=== PATIENT | female | born 1980 | race African-American/Black ===

== ENCOUNTER 2017-06-04 19:46 | Emergency (ER) | payer OTHER ==
[2017-06-04 19:54] VITALS: BP 146/71; PULSE 91; TEMP 98.2; BMI 30.4
--- NOTE | 2017-06-04 21:22 | PDOC ---
History of Present Illness <Alexandra Cross - Last Filed: 06/04/17 21:19> - General History Source: Patient Exam Limitations: No Limitations - History of Present Illness Initial Comments: 06/04/17 21:26 Patient is a 37 year old female with a significant past medical history of Osteoarthritis (Bilateral knee), who presents to the ED with complaints of left sided flank pain that began yesterday afternoon while at work. Patient reports sitting at work she suddenly began to experience a lower left back pain that has shown no signs of subsiding. She reports taking Advil gel and sleeping for pain with minimal relief, but states she woke up at 4am this morning with increased pain. Patient states pain was chronic all day today but states it began to increase in intensity tonight at 7pm, prompting her to come into the ED for further evaluation. She reports her last menstrual cycle was May 13. Denies chest pain, Sob. Denies nausea, vomiting. Denies fevers, chills. Denies constipation, diarrhea, dysuria, hematuria. Denies any other symptoms. Allergies: None Social history: No smoking. No alcohol. No illicit drugs. Surgical history: C section. PMD: Dr. Cuevas <Jorge Luis Story - Last Filed: 06/04/17 21:27> - General Chief Complaint: Pain, Acute Stated Complaint: pain Time Seen by Provider: 06/04/17 21:10 Past History - Suicide/Smoking/Psychosocial Hx Smoking History: Unknown if ever smoked Have you smoked in the past 12 months: No Number of Cigarettes Smoked Daily: 10 Information on smoking cessation initiated: No Hx Alcohol Use: No Drug/Substance Use Hx: No <Alexandra Cross - Last Filed: 06/04/17 21:19> <Jorge Luis Story - Last Filed: 06/04/17 21:27> - Past Medical History Allergies/Adverse Reactions: Allergies Allergy/AdvReac Type Severity Reaction Status Date / Time No Known Allergies Allergy Verified 06/04/17 19:54 Review of Systems - Review of Systems Able to Perform ROS?: Yes Comments:: 06/04/17 21:26 GENERAL/CONSTITUTIONAL: No fever or chills. No weakness. HEAD, EYES, EARS, NOSE AND THROAT: No change in vision. No ear pain or discharge. No sore throat. CARDIOVASCULAR: No chest pain or shortness of breath. RESPIRATORY: No cough, wheezing, or hemoptysis. GASTROINTESTINAL: No nausea, vomiting, diarrhea or constipation. GENITOURINARY: No dysuria, frequency, or change in urination. MUSCULOSKELETAL: +Lower left flank pain. No joint or muscle swelling or pain. No neck SKIN: No rash NEUROLOGIC: No headache, vertigo, loss of consciousness, or change in strength/ sensation. ENDOCRINE: No increased thirst. No abnormal weight change. HEMATOLOGIC/LYMPHATIC: No anemia, easy bleeding, or history of blood clots. ALLERGIC/IMMUNOLOGIC: No hives or skin allergy. <Jorge Luis Story - Last Filed: 06/04/17 21:27> *Physical Exam - Vital Signs Last Vital Signs Temp Pulse Resp BP Pulse Ox 98.2 F 91 H 16 146/71 100 06/04/17 19:51 06/04/17 19:51 06/04/17 19:51 06/04/17 19:51 06/04/17 19:51 <Alexandra Cross - Last Filed: 06/04/17 21:19> - Vital Signs Last Vital Signs Temp Pulse Resp BP Pulse Ox 98.2 F 91 H 16 146/71 100 06/04/17 19:51 06/04/17 19:51 06/04/17 19:51 06/04/17 19:51 06/04/17 19:51 - Physical Exam Comments: 06/04/17 21:27 GENERAL: Awake, alert, and fully oriented, in no acute distress HEAD: No signs of trauma EYES: PERRLA, EOMI, sclera anicteric, conjunctiva clear ENT: Auricles normal inspection, hearing grossly normal, nares patent, oropharynx clear without exudates. Moist mucosa NECK: Normal ROM, supple, no lymphadenopathy, JVD, or masses LUNGS: Breath sounds equal, clear to auscultation bilaterally. No wheezes, and no crackles HEART: Regular rate and rhythm, normal S1 and S2, no murmurs, rubs or gallops ABDOMEN: Unable to elicit pain with palpation or percussion. Soft, nontender, normoactive bowel sounds. No guarding, no rebound. No masses EXTREMITIES: Normal range of motion, no edema. No clubbing or cyanosis. No cords, erythema, or tenderness NEUROLOGICAL: Cranial nerves II through XII grossly intact. Normal speech, normal gait SKIN: Warm, Dry, normal turgor, no rashes or lesions noted. <Jorge Luis Story - Last Filed: 06/04/17 21:27> *DC/Admit/Observation/Transfer <Alexandra Cross - Last Filed: 06/04/17 21:19> - Attestations Scribe Attestion: 06/04/17 21:27 Documentation prepared by Jorge Luis Story, acting as clinical specialist medical device for Alexandra Cross MD/DO. <Jorge Luis Story - Last Filed: 06/04/17 21:27> - Referrals Referrals: Navya Cuevas MD [Primary Care Provider] - - Patient Instructions - Post Discharge Activity
[2017-06-04 21:42] LABS: BASO % 1.1 % (0-2.0); EOS % 2.4 % (0-4.5); HEMATOCRIT 37.7 % (32.4-45.2); HEMOGLOBIN 12.5 GM/dL (10.7-15.3); LYMPH % 40.7 % (8-40); MCHC 33.3 g/dl (32.0-36.0); MEAN CELL VOLUME 90.3 fl (80-96); MEAN PLT VOLUME 7.7 fl (7.5-11.1); MONO % 10.3 % (3.8-10.2); NEUT % 45.5 % (42.8-82.8); PLATELET COUNT 261 K/MM3 (134-434); RBC 4.17 M/mm3 (3.60-5.2)
[2017-06-04 22:10] LABS: ALBUMIN 3.6 g/dl (3.4-5.0); ALK PHOS 80 U/L (45-117); ANION GAP 7 (8-16); BLOOD UREA NITROGEN 12 mg/dL (7-18); CALCIUM 8.4 mg/dL (8.5-10.1); CHLORIDE 108 mmol/L (98-107); CO2 27 mmol/L (21-32); CREATININE 0.7 mg/dL (0.55-1.02); GLUCOSE,RANDOM 102 mg/dL (74-106); POTASSIUM 3.7 mmol/L (3.5-5.1); SGOT/AST 14 U/L (15-37); SGPT/ALT 21 U/L (12-78); SODIUM 142 mmol/L (136-145); TOT PROT 7.3 g/dl (6.4-8.2)
[2017-06-04 22:12] LABS: BILIRUBIN,TOTAL < 0.1 mg/dL (0.2-1.0)
[2017-06-04 23:28] LABS: URINE APPEARANCE CLEAR; URINE BILIRUBIN NEGATIVE (NEGATIVE); URINE BLOOD NEGATIVE (NEGATIVE); URINE COLOR YELLOW; URINE GLUCOSE (UA) NEGATIVE (NEGATIVE); URINE KETONE NEGATIVE (NEGATIVE); URINE LEUK ESTERASE NEGATIVE (NEGATIVE); URINE NITRITE NEGATIVE (NEGATIVE); URINE PROTEIN NEGATIVE (NEGATIVE); URINE UROBILINOGEN NEGATIVE mg/dL (0.2-1.0)
== END 2017-06-04 23:37 | disposition home or self-care (01) ==
LOC: JER 19:46
DX: R10.32 Left lower quadrant pain (principal); M62.830 Muscle spasm of back
CPT/HCPCS: 36415; 72070-TC; 72100-TC; 80053; 81003; 84703; 85025; 99283-25

== ENCOUNTER 2017-12-15 18:14 | Emergency (ER) | payer OTHER ==
[2017-12-15 19:24] VITALS: BMI 42.0
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
[2017-12-15 20:26] LABS: COCAINE, UR NEGATIVE ng/ml (CUTOFF=300); METHADONE, UR NEGATIVE ng/ml (CUTOFF=300); OPIATES, URI NEGATIVE ng/ml (CUTOFF=300); PHENCYCLIDINE,URINE NEGATIVE ng/ml (CUTOFF=25); URINE AMPHETAMINES NEGATIVE ng/ml (CUTOFF=500); URINE BARBITURATES NEGATIVE ng/ml (CUTOFF=200); URINE BENZODIAZEPINES NEGATIVE ng/ml (CUTOFF=200)
[2017-12-15] MEDS ORDERED: IBUPROFEN 600 MG TABLET (FP) PO ONE ×2 (21:46→22:08)
[2017-12-15] MEDS ORDERED: ONDANSETRON *ODT* 4 MG TABLET SL ONE (21:59)
[2017-12-15] MEDS ORDERED: ONDANSETRON *ODT* 4 MG TABLET ONE (22:08)
[2017-12-15 22:15] VITALS: BP 136/82; PULSE 89; TEMP 98.5
--- NOTE | 2017-12-16 08:33 | EKG ---
Test Reason : Blood Pressure : / mmHG Vent. Rate : 098 BPM Atrial Rate : 098 BPM P-R Int : 166 ms QRS Dur : 102 ms QT Int : 356 ms P-R-T Axes : 062 017 043 degrees QTc Int : 454 ms NORMAL SINUS RHYTHM POSSIBLE LEFT ATRIAL ENLARGEMENT NO PREVIOUS ECGS AVAILABLE Confirmed by TORY MORA MD ([id number]) on 12/16/2017 8:32:52 AM Referred By: Confirmed By:TROY MORA MD
== END 2017-12-15 22:12 | disposition home or self-care (01) ==
LOC: JER 18:14
DX: Z04.1 Encounter for examination and observation following transport accident (principal); V40.5XXA Car driver injured in collision with pedestrian or animal in traffic accident, initial encounter; Y93.89 Activity, other specified; Y92.410 Unspecified street and highway as the place of occurrence of the external cause; M19.90 Unspecified osteoarthritis, unspecified site; Z87.891 Personal history of nicotine dependence
CPT/HCPCS: 36415; 71046-TC-FY; 73090-TC-LT-FY; 80307; 84703; 93005; 93010; 99283-25; Q0162